=== PATIENT | female | born 1935 | race Caucasian/White ===

== ENCOUNTER 2017-09-15 14:45 | Inpatient (IN) | payer OTHER, MEDICARE ==
[2017-09-15] VITALS (30 sets, daily range): BP systolic 135–277; BP diastolic 54–114; PULSE 48–93; RESP 16–42; TEMP 97.5–98.2; O2SAT 92–100
[~2017-09-15] VITALS: Ht 160 cm; Wt 61.9 kg
--- NOTE | 2017-09-15 15:26 | PD ---
HPI Chief Complaint: Chest Pain Time Seen by Provider: 15:08 Travel History International Travel<30 days: No Contact w/Intl Traveler<30days: No Traveled to known affect area: No History of Present Illness HPI This 82-year-old female complaining of high blood pressure. She says she went to see her doctor yesterday and at that time her blood pressure was 244/110. She has a history of high blood pressure area she's been on clonidine 0.1 mg twice daily for many years. There is been no recent change in her medication. She does say that she's been under a lot of stress the last few weeks. Her bank account was intact and she has been under a lot of stress. She says she has been taking her medicine. She checks her blood pressure at home and has been over 200. She is having some chest pressure which comes and goes. She gets some pain in her jaw. She has no known history of heart disease. She says she been having a headache for the last 2 days. The headache she is having is bifrontal. She says she generally never gets headaches PFSH Social History Tobacco Use: No Allergies-Medications (Allergen,Severity, Reaction): Coded Allergies: No Known Allergies (Verified Allergy, Unknown, 09/15/17) Reported Meds & Prescriptions Reported Meds & Active Scripts Active Reported Lovastatin 40 Mg Tab 40 Mg PO HS Clonidine (Clonidine HCl) 0.1 Mg Tab 0.1 Mg PO BID Review of Systems General / Constitutional: No: Fever, Chills Eyes: No: Diploplia, Blurred Vision HENT: Positive: Headaches, No: Sore Throat, Rhinitis Cardiovascular: Positive: Chest Pain or Discomfort, No: Palpitations, Irregular Rhythm, Syncope Respiratory: No: Cough, Shortness of Breath Gastrointestinal: No: Nausea, Vomiting Genitourinary: No: Urgency, Frequency Musculoskeletal: No: Myalgias Skin: No Rash, No Itching Neurologic: No: Weakness Endocrine: No: Heat Intolerance, Cold Intolerance Hematologic/Lymphatic: No: Easy Bruising Physical Exam Narrative GENERAL: Well-developed female. Initial blood pressure is 250 systolic SKIN: Focused skin assessment warm/dry. HEAD: Atraumatic. Normocephalic. EYES: Pupils equal and round. No scleral icterus. No injection or drainage. ENT: No nasal bleeding or discharge. Mucous membranes pink and moist. NECK: Trachea midline. No JVD. CARDIOVASCULAR: Regular rate and rhythm. No murmur appreciated. RESPIRATORY: No accessory muscle use. Clear to auscultation. Breath sounds equal bilaterally. GASTROINTESTINAL: Abdomen soft, non-tender, nondistended. Hepatic and splenic margins not palpable. MUSCULOSKELETAL: No obvious deformities. No clubbing. No cyanosis. No edema. NEUROLOGICAL: Awake and alert. No obvious cranial nerve deficits. Motor grossly within normal limits. Normal speech. PSYCHIATRIC: Appropriate mood and affect; insight and judgment normal. Data Data Last Documented VS Vital Signs Date Time Temp Pulse Resp B/P (MAP) Pulse Ox O2 Delivery O2 Flow Rate FiO2 09/15/17 15:51 67 16 277/107 (163) 97 Room Air 09/15/17 15:40 98.2 Orders Orders Complete Blood Count With Diff (09/15/17 15:19) Comprehensive Metabolic Panel (09/15/17 15:19) Troponin I (09/15/17 15:19) B-Type Natriuretic Peptide (09/15/17 15:19) Prothrombin Time / Inr (Pt) (09/15/17 15:19) Act Partial Throm Time (Ptt) (09/15/17 15:19) Urinalysis - C+S If Indicated (09/15/17 15:19) Magnesium (Mg) (09/15/17 15:19) Chest, Single Ap (09/15/17 15:19) Nitroglycerin 2% Oint (Nitroglycerin 2% (09/15/17 15:30) Clonidine (Catapres) (09/15/17 15:30) Ct Brain W/O Iv Contrast(Rout) (09/15/17 15:35) Nicardipine Inj (Cardene Inj) (09/15/17 16:00) Labs Laboratory Tests Test 09/15/17 15:22 White Blood Count 6.7 TH/MM3 Red Blood Count 5.34 MIL/MM3 Hemoglobin 13.3 GM/DL Hematocrit 40.8 % Mean Corpuscular Volume 76.4 FL Mean Corpuscular Hemoglobin 25.0 PG Mean Corpuscular Hemoglobin Concent 32.7 % Red Cell Distribution Width 14.4 % Platelet Count 227 TH/MM3 Mean Platelet Volume 8.1 FL Neutrophils (%) (Auto) 72.4 % Lymphocytes (%) (Auto) 19.7 % Monocytes (%) (Auto) 5.7 % Eosinophils (%) (Auto) 1.8 % Basophils (%) (Auto) 0.4 % Neutrophils # (Auto) 4.9 TH/MM3 Lymphocytes # (Auto) 1.3 TH/MM3 Monocytes # (Auto) 0.4 TH/MM3 Eosinophils # (Auto) 0.1 TH/MM3 Basophils # (Auto) 0.0 TH/MM3 CBC Comment AUTO DIFF Differential Comment Blood Urea Nitrogen 27 MG/DL Creatinine 1.10 MG/DL Random Glucose 104 MG/DL Total Protein 7.3 GM/DL Albumin 3.4 GM/DL Calcium Level 8.9 MG/DL Magnesium Level 2.0 MG/DL Alkaline Phosphatase 69 U/L Aspartate Amino Transf (AST/SGOT) 14 U/L Alanine Aminotransferase (ALT/SGPT) 20 U/L Total Bilirubin 0.9 MG/DL Sodium Level 138 MEQ/L Potassium Level 3.7 MEQ/L Chloride Level 103 MEQ/L Carbon Dioxide Level 30.8 MEQ/L Anion Gap 4 MEQ/L Estimat Glomerular Filtration Rate 47 ML/MIN MDM Medical Decision Making Medical Screen Exam Complete: Yes Emergency Medical Condition: Yes Medical Record Reviewed: Yes Differential Diagnosis Differential includes hypertension, hypertensive emergency, acute coronary syndrome Narrative Course Patient's blood pressures apparently been elevated for several days. She is on quite a low dose of clonidine. She's been given additional clonidine and nitro paste was minimal response. She'll be started on Cardene drip Diagnosis Primary Impression: Hypertensive emergency Wilber Rolon MD Sep 15, 2017 15:26
[2017-09-15] MEDS ORDERED: LOVA40TA PO (15:27)
[2017-09-15] MEDS ORDERED: CLON0.1T PO (15:27)
[2017-09-15] MEDS ORDERED: cloNIDine HCL 0.1 MG TAB PO ONE (15:30)
[2017-09-15] MEDS ORDERED: NITROGLYCERIN 2% OINT 1 GM PACKET TOPICAL ONE (15:30)
[2017-09-15 15:38] LABS: AUTOMATED NEUTROPHIL # 4.9 TH/MM3 (1.8-7.7); BASOPHIL % 0.4 % (0.0-2.0); EOSINOPHIL # 0.1 TH/MM3 (0-0.4); EOSINOPHIL % 1.8 % (0.0-4.0); HEMATOCRIT 40.8 % (35.0-46.0); LYMPH % 19.7 % (9.0-44.0); LYMPHOCYTE # 1.3 TH/MM3 (1.0-4.8); MEAN CELL VOLUME 76.4 FL (80.0-100.0); MEAN CORPUSCULAR HGB CONC 32.7 % (32.0-36.0); MONO % 5.7 % (0.0-8.0); NEUT % 72.4 % (16.0-70.0); PLATELET COUNT 227 TH/MM3 (150-450); RED BLOOD COUNT 5.34 MIL/MM3 (4.00-5.30); RED CELL DISTRIBUTION WIDTH 14.4 % (11.6-17.2); WHITE BLOOD COUNT 6.7 TH/MM3 (4.0-11.0)
[2017-09-15 15:42] LABS: HEMO FLAGS AUTO DIFF
--- NOTE | 2017-09-15 15:44 | RADRPT ---
EXAM DATE/TIME: 09/15/2017 15:33 [facility] COMPARISON: No previous studies available for comparison. INDICATIONS : Chest discomfort, high blood pressure per patient MEDICAL HISTORY : Hypertension. SURGICAL HISTORY : None. ENCOUNTER: Initial ACUITY: 1 day PAIN SCORE: 0/10 LOCATION: Bilateral chest FINDINGS: Portable AP view of the chest demonstrates a normal-sized cardiac silhouette. No effusion, consolidat ion, or pneumothorax is visualized. The bones and soft tissues demonstrate no acute abnormality. EKG lines overlie the patient. CONCLUSION: No acute cardiopulmonary abnormality is identified. Felipe Walker MD on September 15, 2017 at 15:42 Board Certified Radiologist. This report was verified electronically.
[2017-09-15 15:51] LABS: CHLORIDE 103 MEQ/L (98-107); POTASSIUM 3.7 MEQ/L (3.5-5.1); SODIUM (NA) 138 MEQ/L (136-145)
[2017-09-15 15:55] LABS: ANION GAP 4 MEQ/L (5-15); BICARBONATE 30.8 MEQ/L (21.0-32.0); BLOOD UREA NITROGEN 27 MG/DL (7-18)
[2017-09-15 15:57] LABS: ALT (GPT) 20 U/L (10-53)
[2017-09-15 15:58] LABS: AST (GOT) 14 U/L (15-37); GLOMERULAR FILTRATION RATE 47 ML/MIN (>89)
[2017-09-15 15:59] LABS: TOTAL BILIRUBIN ADULT 0.9 MG/DL (0.2-1.0)
[2017-09-15 16:00] LABS: ALKALINE PHOSPHATASE 69 U/L (45-117)
[2017-09-15] MEDS ORDERED: niCARdipine INJ 25 MG in SODIUM CHLOR 0.9% 250 ML INJ 240 ML IV PRN ×2 (16:00→17:00)
[2017-09-15] MEDS ORDERED: niCARdipine INJ 25 MG in SODIUM CHLOR 0.9% 250 ML INJ 250 ML IV PRN (16:15)
--- NOTE | 2017-09-15 16:15 | RADRPT ---
EXAM DATE/TIME: 09/15/2017 15:42 [facility] COMPARISON: No previous studies available for comparison. INDICATIONS : Cephalgia. RADIATION DOSE: 59.16 CTDIvol (mGy) MEDICAL HISTORY : Hypertension. SURGICAL HISTORY : None. ENCOUNTER: Initial ACUITY: 1 day PAIN SCALE: 5/10 LOCATION: cranial TECHNIQUE: Multiple contiguous axial images were obtained of the head. Using automated exposure control and adj ustment of the mA and/or kV according to patient size, radiation dose was kept as low as reasonably a chievable to obtain optimal diagnostic quality images. DICOM format image data is available electro nically for review and comparison. FINDINGS: CEREBRUM: There is mild cerebral atrophy. Ventricles are normal. No evidence of midline shift, mass lesion, he morrhage or acute infarction. No extra-axial fluid collections are seen. POSTERIOR FOSSA: The cerebellum and brainstem demonstrate no acute finding. The 4th ventricle is midline. The cerebe llopontine angle is unremarkable. EXTRACRANIAL: Visualized sinuses are clear. SKULL: The calvaria is intact. No evidence of skull fracture. CONCLUSION: No acute intracranial abnormality is identified. Felipe Walker MD on September 15, 2017 at 16:03 Board Certified Radiologist. This report was verified electronically.
[2017-09-15] MEDS ORDERED: ACETAMINOPHEN 325 MG TAB PO ONE (16:30)
--- NOTE | 2017-09-15 16:33 | PD ---
Physical Exam Narrative Patient was seen by ED physician and signed out to me. Data Data Last Documented VS Vital Signs Date Time Temp Pulse Resp B/P (MAP) Pulse Ox O2 Delivery O2 Flow Rate FiO2 09/15/17 16:16 57 17 221/114 (149) 96 Room Air 09/15/17 15:40 98.2 Orders Orders Complete Blood Count With Diff (09/15/17 15:19) Comprehensive Metabolic Panel (09/15/17 15:19) Troponin I (09/15/17 15:19) B-Type Natriuretic Peptide (09/15/17 15:19) Prothrombin Time / Inr (Pt) (09/15/17 15:19) Act Partial Throm Time (Ptt) (09/15/17 15:19) Urinalysis - C+S If Indicated (09/15/17 15:19) Magnesium (Mg) (09/15/17 15:19) Chest, Single Ap (09/15/17 15:19) Nitroglycerin 2% Oint (Nitroglycerin 2% (09/15/17 15:30) Clonidine (Catapres) (09/15/17 15:30) Ct Brain W/O Iv Contrast(Rout) (09/15/17 15:35) Nicardipine Inj (Cardene Inj) (09/15/17 16:00) Electrocardiogram (09/15/17 14:52) Nicardipine Inj (Cardene Inj) (09/15/17 16:15) Acetaminophen (Tylenol) (09/15/17 16:30) Labs Laboratory Tests Test 09/15/17 15:22 White Blood Count 6.7 TH/MM3 Red Blood Count 5.34 MIL/MM3 Hemoglobin 13.3 GM/DL Hematocrit 40.8 % Mean Corpuscular Volume 76.4 FL Mean Corpuscular Hemoglobin 25.0 PG Mean Corpuscular Hemoglobin Concent 32.7 % Red Cell Distribution Width 14.4 % Platelet Count 227 TH/MM3 Mean Platelet Volume 8.1 FL Neutrophils (%) (Auto) 72.4 % Lymphocytes (%) (Auto) 19.7 % Monocytes (%) (Auto) 5.7 % Eosinophils (%) (Auto) 1.8 % Basophils (%) (Auto) 0.4 % Neutrophils # (Auto) 4.9 TH/MM3 Lymphocytes # (Auto) 1.3 TH/MM3 Monocytes # (Auto) 0.4 TH/MM3 Eosinophils # (Auto) 0.1 TH/MM3 Basophils # (Auto) 0.0 TH/MM3 CBC Comment AUTO DIFF Differential Comment Blood Urea Nitrogen 27 MG/DL Creatinine 1.10 MG/DL Random Glucose 104 MG/DL Total Protein 7.3 GM/DL Albumin 3.4 GM/DL Calcium Level 8.9 MG/DL Magnesium Level 2.0 MG/DL Alkaline Phosphatase 69 U/L Aspartate Amino Transf (AST/SGOT) 14 U/L Alanine Aminotransferase (ALT/SGPT) 20 U/L Total Bilirubin 0.9 MG/DL Sodium Level 138 MEQ/L Potassium Level 3.7 MEQ/L Chloride Level 103 MEQ/L Carbon Dioxide Level 30.8 MEQ/L Anion Gap 4 MEQ/L Estimat Glomerular Filtration Rate 47 ML/MIN Troponin I 0.02 NG/ML MDM Supervised Visit with DAVID: No Interpretation(s) 1632 PM. EKG shows sinus rhythm with right bundle branch block. Nonspecific ST -T wave change. Differential Diagnosis Differential diagnosis including hypertensive emergency, cephalgia, angina, SC, PE, pneumothorax. Narrative Course Patient is with elevated blood pressure, headache, chest pain. Patient was seen by ED physician and signed out to me. Patient started on Cardene drip to control blood pressure. Aspirin 325 g by mouth given. Diagnosis Primary Impression: Hypertensive emergency Additional Impressions: Chest pain Qualified Codes: R07.9 - Chest pain, unspecified Cephalgia Qualified Codes: R51 - Headache César Abraham MD Sep 15, 2017 16:33
--- NOTE | 2017-09-15 16:37 | EKG ---
Date Performed: 09/15/2017 Time Performed: 14:52:55 PTAGE: 82 years EKG: Sinus rhythm POSSIBLE LEFT ATRIAL ENLARGEMENT RIGHT BUNDLE BRANCH BLOCK LEFT ANTERIOR FASCICULAR BLOCK LEFT VENTR ICULAR HYPERTROPHY AND ST-T CHANGE POSSIBLE SEPTAL MYOCARDIAL INFARCTION ABNORMAL ECG Compared to lila or electrocardiogram, rate has increased . PREVIOUS TRACING : 07/16/2002 07.38 DOCTOR: Ramses Bee Interpretating Date/Time 09/15/2017 16:36:21
[2017-09-15 16:38] LABS: SCAN/DIFF AUTO DIFF CONFIRMED
[2017-09-15] MEDS ORDERED: ASPIRIN 325 MG TAB PO ONE (16:45)
[2017-09-15 17:25] LABS: APTT (PATIENT) 27.7 SEC (24.3-30.1); PROTHROMBIN TIME - PATIENT 10.7 SEC (9.8-11.6)
[2017-09-15] MEDS: NIFEdipine 10 MG CAP PO SCH (17:46)
[2017-09-15 17:50] LABS: GLUCOSE,URINE NEG (NEG); KETONE, URINE NEG (NEG); NITRITE,URINE NEG (NEG); PH, URINE 6.5 (5.0-8.5)
[2017-09-15 17:51] LABS: BLOOD, URINE TRACE (NEG)
--- NOTE | 2017-09-15 18:21 | HHI.HP ---
[facility] Primary Care Physician Boy Pacheco MD Admission Diagnosis hypertensive urgency. Chest pain. Cephalgia. Diagnoses: Chief Complaint: high blood pressure Travel History International Travel<30 Days: No Contact w/Intl Traveler <30 Da: No Traveled to Known Affected Are: No History of Present Illness 82 y/o WF being admitted for hypertensive emergency. Pt was in her USOH until yesterday when he went to her PCPs office was noted to have an elevated blood pressures near the 200s systolic. The patient was offered to get an EKG but declined and said she was going to get it later. She then rechecked her blood pressure at home today and it was 240s systolic and then decided to proceed to the ER. Patient reports having very mild but intermittent chest pains that she says are chronic. Did report having some lightheadedness earlier this morning. No nausea or vomiting, no fevers or chills. Review of Systems Except as stated in HPI: all other systems reviewed are Neg Past Family Social History Past Medical History HTN HYL Past Surgical History tonsillectomy Allergies: Coded Allergies: No Known Allergies (Verified Allergy, Unknown, 09/15/17) Family History HTN Social History ex smoker by 20+ yrs light ETOH use Physical Exam Vital Signs Vital Signs Date Time Temp Pulse Resp B/P (MAP) Pulse Ox O2 Delivery O2 Flow Rate FiO2 09/15/17 17:50 76 176/74 (108) 09/15/17 17:40 74 178/86 (116) 09/15/17 17:26 86 184/86 (118) 09/15/17 17:11 83 17 214/94 (134) 95 Room Air 09/15/17 16:16 57 17 221/114 (149) 96 Room Air 09/15/17 16:13 63 228/112 09/15/17 15:51 67 16 277/107 (163) 97 Room Air 09/15/17 15:40 98.2 60 18 263/106 (158) 97 Room Air 09/15/17 15:00 98.1 79 16 244/110 (154) 96 Physical Exam VS: afebrile GENERAL: well nourished elderly female SKIN: Warm and dry. EYES: Pupils equal and round. No scleral icterus. No injection or drainage. ENT: No nasal bleeding or discharge. Mucous membranes pink and moist. CARDIOVASCULAR: Regular rate and rhythm. no murmurs RESPIRATORY: No accessory muscle use. Clear to auscultation. Breath sounds equal bilaterally. GASTROINTESTINAL: Abdomen soft, non-tender, nondistended. Hepatic and splenic margins not palpable. Extremities: No clubbing, cyanosis, or edema. No obvious deformities. MUSCULOSKELETAL: Extremities without clubbing, cyanosis, or edema. No obvious deformities. grossly intact ROM with 5/5 strength in upper and lower extremities proximally NEUROLOGICAL: Awake and alert. No obvious cranial nerve deficits. No facial droop nor slurred speech noted. PSYCHIATRIC: Appropriate mood and affect; insight and judgment normal. Laboratory Laboratory Tests Test 09/15/17 15:22 09/15/17 17:39 White Blood Count 6.7 Red Blood Count 5.34 Hemoglobin 13.3 Hematocrit 40.8 Mean Corpuscular Volume 76.4 Mean Corpuscular Hemoglobin 25.0 Mean Corpuscular Hemoglobin Concent 32.7 Red Cell Distribution Width 14.4 Platelet Count 227 Mean Platelet Volume 8.1 Neutrophils (%) (Auto) 72.4 Lymphocytes (%) (Auto) 19.7 Monocytes (%) (Auto) 5.7 Eosinophils (%) (Auto) 1.8 Basophils (%) (Auto) 0.4 Neutrophils # (Auto) 4.9 Lymphocytes # (Auto) 1.3 Monocytes # (Auto) 0.4 Eosinophils # (Auto) 0.1 Basophils # (Auto) 0.0 CBC Comment AUTO DIFF Differential Comment AUTO DIFF CONFIRMED Prothrombin Time 10.7 Prothromb Time International Ratio 1.0 Activated Partial Thromboplast Time 27.7 Blood Urea Nitrogen 27 Creatinine 1.10 Random Glucose 104 Total Protein 7.3 Albumin 3.4 Calcium Level 8.9 Magnesium Level 2.0 Alkaline Phosphatase 69 Aspartate Amino Transf (AST/SGOT) 14 Alanine Aminotransferase (ALT/SGPT) 20 Total Bilirubin 0.9 Sodium Level 138 Potassium Level 3.7 Chloride Level 103 Carbon Dioxide Level 30.8 Anion Gap 4 Estimat Glomerular Filtration Rate 47 Troponin I 0.02 Urine pH 6.5 Urine Protein 30 Urine Glucose (UA) NEG Urine Ketones NEG Urine Occult Blood TRACE Urine Nitrite NEG Urine Bilirubin NEG Urine Leukocyte Esterase NEG Result Diagram: 09/15/17 1522 09/15/17 1522 Imaging Last Impressions Head CT 09/15/17 1535 Signed Impressions: Service Date/Time: Friday, September 15, 2017 15:42 - CONCLUSION: No acute intracranial abnormality is identified. Felipe Walker MD Chest X-Ray 09/15/17 1519 Signed Impressions: Service Date/Time: Friday, September 15, 2017 15:33 - CONCLUSION: No acute cardiopulmonary abnormality is identified. MD Carlton Pendleton VTE Risk Assessment [place] VTE Risk Assessment: Mod/High Risk (score >= 2) Caprini Risk Assessment Model Point Value = 1 Point Value = 2 Point Value = 3 Point Value = 5 Age 41-60 Minor surgery BMI > 25 kg/m2 Swollen legs Varicose veins or History of unexplained or recurrent spontaneous Oral contraceptives or hormone replacement Sepsis (< 1 month) Serious lung disease, including pneumonia (< 1 month) Abnormal pulmonary function Acute myocardial infarction Congestive heart failure (< 1 month) History of inflammatory bowel disease Medical patient at bed rest Age 61-74 Arthroscopic surgery Major open surgery (> 45 min) Laparoscopic surgery (> 45 min) Malignancy Confined to bed (> 72 hours) Immobilizing plaster cast Central venous access Age >= 75 History of VTE Family history of VTE Factor V Leiden Prothrombin [id number] Lupus anticoagulant Anticardiolipin antibodies Elevated serum homocysteine Heparin-induced thrombocytopenia Other congenital or acquired thrombophilia Stroke (< 1 month) Elective arthroplasty Hip, pelvis, or leg fracture Acute spinal cord injury (< 1 month) Prophylaxis Regimen Total Risk Factor Score Risk Level Prophylaxis Regimen 0-1 Low Early ambulation 2 Moderate Order ONE of the following: *Sequential Compression Device (SCD) *Heparin 5000 units SQ BID 3-4 Higher Order ONE of the following medications: *Heparin 5000 units SQ TID *Enoxaparin/Lovenox 40 mg SQ daily (WT < 150 kg, CrCl > 30 mL/min) *Enoxaparin/Lovenox 30 mg SQ daily (WT < 150 kg, CrCl > 10-29 mL/min) *Enoxaparin/Lovenox 30 mg SQ BID (WT < 150 kg, CrCl > 30 mL/min) AND/OR *Sequential Compression Device (SCD) 5 or more Highest Order ONE of the following medications: *Heparin 5000 units SQ TID (Preferred with Epidurals) *Enoxaparin/Lovenox 40 mg SQ daily (WT < 150 kg, CrCl > 30 mL/min) *Enoxaparin/Lovenox 30 mg SQ daily (WT < 150 kg, CrCl > 10-29 mL/min) *Enoxaparin/Lovenox 30 mg SQ BID (WT < 150 kg, CrCl > 30 mL/min) AND *Sequential Compression Device (SCD) Assessment and Plan Assessment and Plan HTN emergency - continue nicardipine drip in ICU w/ gradual titration to avoid risk of CVA - starting oral nifedipine and Lopressor, monitor BPs, patient reports having a cough side effect likely to an JC inhibitor in the past - telemetry - CT head neg Chest pain - I independently reviewed EKG shows new T-wave inversions in V1 and V2, but given that her EKG prior to today was done in 2001 and that clinically her symptoms do not match up with ACS, I suspect that these changes likely became subacute to chronic over the years, troponin negative - Very mild and intermittent, not exertion-based, I do not suspect that this is due to demand ischemia, will not workup any further unless it worsens DVT proph. Lovenox Physician Certification 2 Midnight Certification Type: Admission for Inpatient Services Order for Inpatient Services The services are ordered in accordance with Medicare regulations or non- Medicare payer requirements, as applicable. In the case of services not specified as inpatient-only, they are appropriately provided as inpatient services in accordance with the 2-midnight benchmark. Estimated LOS (days): 2 2 days is the estimated time the patient will need to remain in the hospital, assuming treatment plan goals are met and no additional complications. Post-Hospital Plan: Home Byron Gutierrez MD Sep 15, 2017 18:21
[2017-09-15 18:26] LABS: URINE COLOR YELLOW (YELLW/STRAW)
[2017-09-15 18:27] LABS: RBC, URINE 0-2 /hpf (0-3); SQUAMOUS EPITHELIAL CELL URINE 0-5 /hpf (0-5); WBC, URINE 0-2 /hpf (0-5)
[2017-09-15 18:28] LABS: COMMENT (UR) CULT NOT INDICATED; CULTURE IF INDICATED CULT NOT INDICATED
[2017-09-15] MEDS: METOPROLOL TARTRATE 25 MG TAB PO SCH (20:15)
[2017-09-15] MEDS ORDERED: PRAVASTATIN SOD 40 MG TAB PO SCH (21:00)
[2017-09-16] VITALS (38 sets, daily range): BP systolic 140–196; BP diastolic 60–88; PULSE 49–78; RESP 18–43; TEMP 97.6–98.5; O2SAT 94–96
[2017-09-16] MEDS: niCARdipine INJ 25 MG in SODIUM CHLOR 0.9% 250 ML INJ 240 ML IV PRN ×2 (01:11→06:25)
[2017-09-16] MEDS ORDERED: CHLORHEXIDINE GLUCONATE 2 % 1 PACK (2 CLOTHS)(extra cloths) TOPICAL PRN (01:15)
[2017-09-16] MEDS ORDERED: CHLORHEXIDINE GLUCONATE 2 % 1 PACK (2 CLOTHS)(taper/protocol) TOPICAL SCH (04:00)
[2017-09-16] MEDS: NIFEdipine 10 MG CAP PO SCH (06:24)
[2017-09-16] MEDS: METOPROLOL TARTRATE 25 MG TAB PO SCH (09:00)
[2017-09-16] MEDS ORDERED: cloNIDine HCL 0.1 MG TAB PO ONE (10:45)
[2017-09-16] MEDS ORDERED: PILL SPLITTER OTHER PRN (10:45)
[2017-09-16] MEDS ORDERED: NIFEdipine 10 MG CAP PO ONE (10:45)
[2017-09-16] MEDS ORDERED: NIFEdipine 20 MG CAP PO SCH (14:00)
[2017-09-16] MEDS ORDERED: LOSA25TA PO (16:25)
[2017-09-16] MEDS ORDERED: METO25TA3 PO (16:25)
[2017-09-16] MEDS ORDERED: NIFE60TA58 PO (16:25)
--- NOTE | 2017-09-16 16:26 | HHI.DCPOC ---
Discharge Care Plan Diagnosis: (1) Hypertensive emergency Additional Problems Have your primary care doctor check your kidney function attention next visit. Goals to Promote Your Health * To prevent worsening of your condition and complications * To maintain your health at the optimal level Directions to Meet Your Goals Take your medications as prescribed Follow your dietary instruction Follow activity as directed Keep your appointments as scheduled Take your immunizations and boosters as scheduled If your symptoms worsen call your PCP, if no PCP go to Urgent Care Center or Emergency Room Smoking is Dangerous to Your Health. Avoid second hand smoke Call the 24-hour hour crisis hotline for domestic abuse at Byron Gutierrez MD Sep 16, 2017 16:26
[2017-09-16] MEDS ORDERED: ASPI81TA23 PO (16:28)
--- NOTE | 2017-09-16 16:38 | HHI.PR ---
Subjective Remarks RN reports no symptomatic deteriorations since last night. Pt feels fine. no CP today. no lightheadedness. Objective Vital Signs Date Time Temp Pulse Resp B/P (MAP) Pulse Ox O2 Delivery O2 Flow Rate FiO2 09/16/17 13:50 60 29 163/64 (97) 94 09/16/17 13:00 60 26 142/65 (90) 09/16/17 12:00 60 09/16/17 12:00 97.6 60 36 149/63 (91) 94 09/16/17 11:00 64 43 171/72 (105) 09/16/17 10:27 66 28 171/83 (112) 09/16/17 10:14 60 171/83 09/16/17 10:00 66 27 180/87 (118) 09/16/17 10:00 66 09/16/17 09:00 74 38 149/72 (97) 09/16/17 08:57 72 27 168/75 (106) 09/16/17 08:00 66 09/16/17 07:57 64 37 150/69 (96) 09/16/17 07:00 98.5 64 22 140/62 (88) 09/16/17 06:34 64 20 178/85 (116) 09/16/17 06:27 66 22 175/77 (109) 09/16/17 06:25 66 170/77 09/16/17 06:00 69 09/16/17 05:57 66 22 164/75 (104) 09/16/17 05:42 76 22 170/74 (106) 09/16/17 05:30 78 22 179/88 (118) 09/16/17 05:13 63 20 168/69 (102) 09/16/17 05:01 62 20 196/79 (118) 09/16/17 05:00 66 22 188/79 (115) 09/16/17 04:30 54 21 158/66 (96) 09/16/17 04:00 54 22 143/60 (87) 95 09/16/17 04:00 58 09/16/17 03:30 54 22 145/62 (89) 09/16/17 03:01 56 20 156/63 (94) 09/16/17 02:46 56 22 148/65 (92) 09/16/17 02:31 58 22 151/64 (93) 09/16/17 02:16 56 24 142/60 (87) 09/16/17 02:01 56 22 142/62 (88) 95 09/16/17 02:00 61 09/16/17 01:46 56 22 144/65 (91) 09/16/17 01:31 56 26 146/65 (92) 09/16/17 01:31 56 26 146/65 (92) 09/16/17 01:30 56 34 09/16/17 01:16 50 18 171/75 (107) 09/16/17 01:11 58 146/55 09/16/17 01:01 56 20 179/69 (105) 09/16/17 00:46 52 22 156/69 (98) 09/16/17 00:30 54 32 165/69 (101) 09/16/17 00:15 52 18 164/71 (102) 09/16/17 00:00 54 26 165/68 (100) 09/16/17 00:00 49 09/16/17 00:00 98.0 54 26 165/68 (100) 96 09/15/17 23:45 54 20 162/66 (98) 09/15/17 23:45 54 20 162/66 (98) 09/15/17 23:30 48 39 170/69 (102) 09/15/17 23:30 48 39 170/69 (102) 09/15/17 23:15 52 24 169/70 (103) 09/15/17 23:15 52 24 169/70 (103) 09/15/17 23:00 50 24 151/61 (91) 09/15/17 23:00 50 24 151/61 (91) 09/15/17 22:45 50 19 144/64 (90) 09/15/17 22:30 52 18 142/69 (93) 09/15/17 22:15 54 20 148/54 (85) 09/15/17 22:00 52 09/15/17 22:00 55 24 145/65 (91) 09/15/17 21:45 50 27 135/58 (83) 09/15/17 21:30 58 24 152/62 (92) 09/15/17 21:15 56 19 144/64 (90) 09/15/17 21:00 58 19 135/58 (83) 09/15/17 20:45 56 24 140/58 (85) 09/15/17 20:19 66 24 156/65 (95) 96 09/15/17 20:00 59 09/15/17 19:41 68 34 166/63 (97) 09/15/17 19:30 64 149/61 09/15/17 19:30 98.1 67 30 135/58 (83) 95 09/15/17 19:21 66 42 168/76 (106) 92 09/15/17 18:55 77 17 171/68 (102) 99 Room Air 09/15/17 18:55 09/15/17 18:35 97.5 80 17 149/64 (92) 100 Room Air 09/15/17 18:20 87 162/69 (100) 09/15/17 18:05 93 177/74 (108) 09/15/17 17:50 76 176/74 (108) 09/15/17 17:40 74 178/86 (116) 09/15/17 17:26 86 184/86 (118) 09/15/17 17:11 83 17 214/94 (134) 95 Room Air I/O 09/15/17 09/15/17 09/15/17 09/16/17 09/16/17 09/16/17 07:00 15:00 23:00 07:00 15:00 23:00 Intake Total 1220 ml 235 ml Output Total 800 ml Balance -800 ml 1220 ml 235 ml Intake Oral 720 ml IV Total 500 ml 235 ml Output Urine Total 800 ml # Voids 1 5 # Bowel Movements 0 Result Diagram: 09/15/17 1522 09/15/17 1522 Objective Remarks unlabored breathing Hrt sounds: RRR and no murmurs A/P Assessment and Plan HTN emergency - discontinued off drip today in AM, now on orals tolerating nifedipine, lopressor, and onex1 dose of clonidine Complete symptom resolution. Resolution of HTN emergency. Pt ambulated well in hallway and around nursing station w/o CP. No angina suspected. Extensively counseled patient on f/u with PCP regarding close BP monitoring. Explained that if she found herself of have elevated BPs in the 200s systolic with any symptoms to return to ER. Pt verbalized understanding. Spent more than 30 min on discharge. Byron Gutierrez MD Sep 16, 2017 16:38
== END 2017-09-16 17:50 | disposition home or self-care (01) | DRG 305 ==
LOC: PHED 14:45 → PHEDA 16:50 → PHICU 19:12
PROVIDERS: ADMIT Hospitalist; ATTEND Hospitalist
DX: I16.1 Hypertensive emergency (principal); I10 Essential (primary) hypertension; R51 Headache; R07.89 Other chest pain; Z87.891 Personal history of nicotine dependence
CPT/HCPCS: 70450; 71010; 80053; 81001; 82948; 83735; 83880; 84484; 85025; 85610; 85730; 87641; 93005; 96365; J7050

== ENCOUNTER 2018-09-01 11:26 | Observation (INO) ==
[2018-09-01 12:58] LABS: Baso % (Auto) 0.7 % (0.0-2.0); Eos # (Auto) 0.1 th/mm3 (0.0-0.4); Hematocrit 38.6 % (35.0-46.0); Hemoglobin 12.6 gm/dL (11.6-15.3); Lymph # (Auto) 1.1 th/mm3 (1.0-4.8); Lymph % (Auto) 15.7 % (9.0-44.0); Mean Corpuscular HGB Conc 32.6 % (32.0-36.0); Mean Corpuscular Hemoglobin 25.7 pg (27.0-34.0); Mean Platelet Volume 8.3 fL (7.0-11.0); Mono # (Auto) 0.5 th/mm3 (0.0-0.9); Mono % (Auto) 7.7 % (0.0-8.0); Neut # (Auto) 5.2 th/mm3 (1.8-7.7); Neut % (Auto) 73.9 % (16.0-70.0); Platelet Count 255 th/mm3 (150-450); Red Blood Count 4.88 mil/mm3 (4.00-5.30)
[2018-09-01] MEDS ORDERED: Metoprolol Tartrate 25 MG Tablet PO ONE (13:00)
[2018-09-01] MEDS ORDERED: Chlorhexidine Gluconate 2% 1 Pack (2 Cloths) TOPICAL ONE (13:00)
[2018-09-01] MEDS ORDERED: Sodium Chlor 0.9% Inj 500 ML IV.SIG SCH (13:00)
[2018-09-01] MEDS ORDERED: Chlorhexidine 4% Topical 120 APPLIC/120 ML Bottle TOPICAL SCH (13:00)
[2018-09-01 13:10] LABS: Calcium 8.7 mg/dL (8.5-10.1); Carbon Dioxide 27.6 meq/L (21.0-32.0); Potassium 4.2 meq/L (3.5-5.1)
[2018-09-01] MEDS ORDERED: ceFAZolin 2 GM Premix Inj 2 GM/50 ML PIGGYBACK IV.SIG ONE (13:30)
[2018-09-01] MEDS ORDERED: Famotidine PF Inj 20 MG/2 ML Vial ONE (13:57)
[2018-09-01] MEDS ORDERED: fentaNYL Citrate Inj 100 MCG/2 ML Ampul ONE ×2 (13:57→15:57)
[2018-09-01] MEDS ORDERED: Lidocaine PF 1% Inj 5 ML Syringe OTHER ONE (14:16)
[2018-09-01] MEDS ORDERED: BUPIVACAINE ONE (14:37)
[2018-09-01] MEDS ORDERED: EPINEPHRINE ONE (14:37)
[2018-09-01] MEDS ORDERED: Morphine Sulfate Inj 8 MG/ML Vial IV.PUSH PRN (15:38)
--- NOTE | 2018-09-01 15:38 | P.OP ---
Date of procedure: 09/01/18 Procedure: Open reduction internal fixation closed left distal radius extra-articular fracture Implants: Synthes Anesthesia: GETA Surgeon: Kandice Goodrich MD Estimated blood loss (mL): 15 Pathology: none sent Operation and Findings: Indications for procedure: Patient is an 83-year-old female who had a mechanical trip and fall and was found to have a closed displaced left extra- articular distal radius fracture. Patient underwent closed reduction and splinting in the emergency department and followed up in my office. Patient was found to have persistent displaced closed left distal radius fracture. Options of management were discussed with the patient. Risks, benefits, alternatives were discussed. At this time patient wished to proceed with the above-mentioned procedure. Description of procedure: Patient was brought back to the operating room and placed supine on operating room table with all bony promises well-padded. General anesthesia then ensued. A tourniquet was placed on the patient's left upper arm and patient was prepped and draped in standard sterile fashion. Preoperative antibiotics were given within 1 hour of incision. A timeout was performed to down by the correct patient, side, site and procedure to be performed. The arm was exsanguinated and the tourniquet inflated to 250 mmHg. A volar incision was made about the distal radius over the FCR. Sharp dissection through the skin and subcutaneous tissue. The FCR tendon sheath was incised and the FCR tendon mobilized ulnarly. The floor of the FCR tendon sheath was then incised along with pronator quadratus which was elevated off of the distal aspect of the radius. The fracture site was immediately encountered. The fracture site was cleaned of tissue and the distal radius reduced under traction and rotation and verified on AP and lateral radiographs. A distal radius locking plate was then placed and verified to be in appropriate position on AP and lateral radiographs. A nonlocking cortical screw was placed in the proximal radius. Again the plate was verified to be in appropriate position. The fracture was held reduced and distal locking screws were then placed. Again, the fracture was found to be in appropriate alignment and hardware in appropriate position. 2 more nonlocking cortical screws were placed in the proximal radius. All screws were final tightened. Final radiographs were obtained which demonstrated the fracture was well reduced and hardware was in appropriate position. The wound was thoroughly irrigated with normal saline laden with gentamicin. The subcutaneous tissue was closed with Vicryl sutures and the skin closed with nylon. Local anesthetic of quarter percent Marcaine with epinephrine was utilized. The tourniquet was deflated and sterile dressings applied along with a short arm splint. Patient was awoke from general anesthesia without complication. Disposition: Nonweightbearing left upper extremity in splint. Patient will be discharged from the postoperative area when she meets criteria. Instructions to follow-up as scheduled in my office in approximately 2 weeks.
[2018-09-01] MEDS ORDERED: hydrALAZINE HCl Inj 20 MG/ML Vial ONE (15:47)
[2018-09-01] MEDS ORDERED: *Meperidine Inj 25 MG/ML Vial PERIprocedural Use ONLY ONE (15:47)
--- NOTE | 2018-09-01 15:55 | XR ---
EXAM DATE: 09/01/2018 3:51 PM EDT AGE/SEX: 83 years / Female INDICATIONS: ORIF of the left wrist done in the operating room. CLINICAL DATA: This is the patient's initial encounter. Patient reports that signs and symptoms have been present for 1 day and indicates a pain score of Nonresponsive. MEDICAL/SURGICAL HISTORY: Hypertension. None. COMPARISON: [facility], WRIST LTD LEFT AP&LAT 2V, 08/24/2018. . FINDINGS: Intraoperative images show sideplate and osseous screws securing the distal radial metadiaphyseal fra cture. Fracture fragments are in adequate anatomic alignment with some minimal radial displacement of the distal fragment. CONCLUSION: Open reduction and internal fixation of the distal radial metadiaphyseal fracture as above. Electronically signed by: Sonu Hyatt MD 09/01/2018 3:53 PM EDT
[2018-09-01] MEDS ORDERED: HYDROmorphone PF Inj 2 MG/ML Vial ONE ×2 (16:05→16:28)
[2018-09-01] MEDS ORDERED: *Ondansetron Inj 4 MG/2 ML Vial PERIprocedural Use ONLY ONE (16:15)
[2018-09-01] MEDS ORDERED: *Promethazine Inj 25 MG/ML Vial PERIprocedural use ONLY ONE (16:39)
[2018-09-01] MEDS ORDERED: Ropivacaine 0.5% PF Inj 20 ML Vial ONE (17:10)
[2018-09-02 01:56] VITALS: RESP 20
--- NOTE | 2018-09-02 06:32 | P.PNOP ---
Subjective Interval history: Patient resting comfortably. States she has no pain this morning. Physical Exam Vital signs: Vital Signs 09/01/18 12:26 09/01/18 15:43 09/01/18 15:45 Temperature 97.7 F 97.5 F L Pulse Rate 54 L 61 61 Respiratory Rate 16 22 20 Blood Pressure 220/83 H 198/93 H 240/104 H Pulse Oximetry 96 100 100 09/01/18 15:51 09/01/18 16:00 09/01/18 16:15 Temperature Pulse Rate 64 73 76 Respiratory Rate 14 15 15 Blood Pressure 218/95 H 203/86 H 209/86 H Pulse Oximetry 100 100 100 09/01/18 16:30 09/01/18 16:45 09/01/18 17:00 Temperature Pulse Rate 76 77 75 Respiratory Rate 23 19 19 Blood Pressure 189/81 H 184/81 H 181/78 H Pulse Oximetry 100 99 100 09/01/18 17:15 09/01/18 17:30 09/01/18 17:45 Temperature Pulse Rate 76 69 67 Respiratory Rate 14 14 14 Blood Pressure 189/81 H 176/75 H 150/70 H Pulse Oximetry 98 100 99 09/01/18 18:00 09/01/18 20:00 09/02/18 00:00 Temperature 98.1 F 96.0 F L 97.7 F Pulse Rate 71 81 84 Respiratory Rate 14 22 20 Blood Pressure 143/70 H 176/83 H 196/83 H Pulse Oximetry 94 L 90 L 93 L 09/02/18 02:39 09/02/18 04:00 09/02/18 06:16 Temperature 98.2 F Pulse Rate 78 75 71 Respiratory Rate 20 Blood Pressure 176/78 H 184/81 H 152/68 H Pulse Oximetry 95 Intake & Output 09/01/18 09/01/18 09/02/18 06:59 18:59 06:59 Intake Total 1080 / 1080 480 / 480 Output Total Balance 1065 / 1065 480 / 480 Weight 61.7 kg 62 kg Intake: IV 50 / 50 Ancef 2 GM Premix Inj 2 gm In 50 / 50 50 ml @ 100 mls/hr IV.SIG ONCE ONE Rx#:[id number] Oral 480 / 480 Anesthesia Amount 1000 / 1000 Output: Urine 0 / 0 Estimated Blood Loss Other: # Voids 2 Date of Last Bowel Movement 09/01/18 Weight On Admission 61.7 kg Narrative: Awake, alert, no acute distress Left upper extremity: Splint in place without significant drainage. Patient wiggles fingers without difficulty. Sensation intact. Brisk cap refill. Negative Homans Results - Labs CBC & Chem 7: 09/01/18 12:20 09/01/18 12:20 Laboratory Results - last 24 hr 09/01/18 09/01/18 12:20 12:20 WBC 7.0 RBC 4.88 Hgb 12.6 Hct 38.6 MCV 79.0 L MCH 25.7 L MCHC 32.6 RDW 15.0 Plt Count 255 MPV 8.3 Neut % (Auto) 73.9 H Lymph % (Auto) 15.7 Starr % (Auto) 7.7 Eos % (Auto) 2.0 Baso % (Auto) 0.7 Neut # (Auto) 5.2 Lymph # (Auto) 1.1 Starr # (Auto) 0.5 Eos # (Auto) 0.1 Baso # (Auto) 0.0 WBC Differential . Differential Comment Auto diff final Sodium 142 Potassium 4.2 Chloride 105 Carbon Dioxide 27.6 Anion Gap 9 BUN 22 H Creatinine 1.13 H Estimated GFR 46 L Random Glucose 97 Calcium 8.7 - Imaging Impressions Wrist X-Ray 09/01/18 00:00 CONCLUSION: Open reduction and internal fixation of the distal radial metadiaphyseal fracture as above. Assessment and Plan - Assessment and Plan 83-year-old female, POD#1 s/p ORIF L 1. NWB LUE in splint 2. Mobilization as tolerated 3. Discharge home this morning
[2018-09-02 08:49] VITALS: BP 176/74; PULSE 69; TEMP 98.3; O2SAT 94
[2018-09-02] MEDS ORDERED: Atenolol 25 MG Tablet PO SCH (09:00)
--- NOTE | 2018-09-02 14:21 | P.DS ---
Date of admission: 09/01/18 18:57 Primary care physician: UNKNOWN DS: Medications - Discharge Medications Prescriptions: hydrocodone-acetaminophen 1 tab PO Q4-6H PRN #28 tab PRN Reason: Pain DS: Summary - Time Spent with Patient Total time spent providing and/or coordinating discharge services: - Quality: VTE Deep Vein Thrombosis/Pulmonary Embolism Present on Admission: No Exam Vital signs: Vital Signs 09/01/18 15:43 09/01/18 15:45 09/01/18 15:51 Temperature 97.5 F L Pulse Rate 61 61 64 Respiratory Rate 22 20 14 Blood Pressure 198/93 H 240/104 H 218/95 H Pulse Oximetry 100 100 100 09/01/18 16:00 09/01/18 16:15 09/01/18 16:30 Temperature Pulse Rate 73 76 76 Respiratory Rate 15 15 23 Blood Pressure 203/86 H 209/86 H 189/81 H Pulse Oximetry 100 100 100 09/01/18 16:45 09/01/18 17:00 09/01/18 17:15 Temperature Pulse Rate 77 75 76 Respiratory Rate 19 19 14 Blood Pressure 184/81 H 181/78 H 189/81 H Pulse Oximetry 99 100 98 09/01/18 17:30 09/01/18 17:45 09/01/18 18:00 Temperature 98.1 F Pulse Rate 69 67 71 Respiratory Rate 14 14 14 Blood Pressure 176/75 H 150/70 H 143/70 H Pulse Oximetry 100 99 94 L 09/01/18 20:00 09/02/18 00:00 09/02/18 02:39 Temperature 96.0 F L 97.7 F Pulse Rate 81 84 78 Respiratory Rate 22 20 Blood Pressure 176/83 H 196/83 H 176/78 H Pulse Oximetry 90 L 93 L 09/02/18 04:00 09/02/18 06:16 09/02/18 08:00 Temperature 98.2 F 98.3 F Pulse Rate 75 71 69 Respiratory Rate 20 20 Blood Pressure 184/81 H 152/68 H 176/74 H Pulse Oximetry 95 94 L Intake & Output 09/01/18 09/02/18 09/02/18 18:59 06:59 18:59 Intake Total 1080 / 1080 480 / 480 Output Total 15 / 15 Balance 1065 / 1065 480 / 480 Weight 61.7 kg 62 kg Intake: IV 50 / 50 Ancef 2 GM Premix Inj 2 gm In 50 / 50 50 ml @ 100 mls/hr IV.SIG ONCE ONE Rx#:[id number] Oral 30 30 480 / 480 Anesthesia Amount 1000 / 1000 Output: Urine 0 / 0 Estimated Blood Loss Other: # Voids 2 Date of Last Bowel Movement 09/01/18 09/01/18 Weight On Admission 61.7 kg Results - Impressions ITS Impressions Wrist X-Ray 09/01/18 00:00 CONCLUSION: Open reduction and internal fixation of the distal radial metadiaphyseal fracture as above. Discharge Plan - Discharge Disposition Patient Disposition: Discharge Home - Discharge Order Discharge Orders: Discharge Order (Routine); Ordered 09/01/18 Ordered By: Kandice Goodrich - Physicians Team Primary Care Provider: UNKNOWN, Attending Provider: Kandice Goodrich Other Providers: Maryanne Mccormick DO - Rxs /Orders / Referrals /Forms Prescriptions: New hydrocodone-acetaminophen 5-325 mg Tablet 1 tab PO Q4-6H PRN (Reason: Pain) Qty: 28 RF: 0 Continue atenolol 25 mg Tablet 25 mg PO DAILY clonidine HCl 0.1 mg Tablet 0.1 mg PO TID lovastatin 40 mg Tablet 40 mg PO DAILY Referrals: Kandice Goodrich MD [Physician] - Boy Pacheco MD [Family Provider] - See Instructions UNKNOWN, [Primary Care Provider] - See Instructions - Discharge Instructions Patient Printed Instructions: How to Use a Sling (DC), Splint Care (DC), R.I.C.E. Treatment (ED), ORIF (DC), Non Weight Bearing Activity (DC), General Anesthesia (DC) Additional Instructions: Please resume your regular diet Non weight bearing to left upper extremity in splint Please keep your splint and dressing should remain clean and dry and intact until your follow up appointment. No drinking alcohol or driving a motor vehicle today, or until you have been cleared by your doctor - Post Discharge Care Plan Care Plan Goals: Your Health Problems: Goals to Promote Your Health: * To prevent worsening of your condition * To maintain your health at the optimal level Directions to Meet Your Goals: * Take your medications as prescribed * Follow your dietary instruction * Follow activity as directed * Keep your appointments as scheduled * Take your immunizations and boosters as scheduled * If your symptoms worsen call your PCP * If no PCP go to Urgent Care or Emergency Room Smoking is dangerous to your health. Avoid second hand smoke. You may reach the 24-hour crisis hotline for domestic abuse at .
--- NOTE | 2018-09-02 14:24 | P.CON ---
History of Present Illness Service: Hospitalist Consult date: 09/02/18 Reason for Consult: Medical management. Primary Care Provider: UNKNOWN Chief Complaint: Wrist pain History of Present Illness: Ms. Graves is a pleasant 83-year-old female with a history of hypertension who sustained a closed displaced left extra-articular distal radius fracture after a mechanical fall. Patient underwent ORIF by orthopedic surgery. Hospitalist service was consulted for medical management including hypertension. At the time of this interview, patient is currently doing well. Denies any chest pain, shortness of breath, fever or chills. She reports that she has been on clonidine for blood pressure control for a long time. Also she was started on atenolol for blood pressure control recently. No changes in bowel or bladder habits. She is being discharged home today. Past medical history: Hypertension, hyperlipidemia Past surgical history: Hip surgery, appendectomy, tonsillectomy Social history: Denies smoking or using illicit drugs. She drinks alcohol occasionally. Family history: No family history of Alzheimer's or Parkinson's. Review of Systems All other systems reviewed negative except as stated in HPI PMFSH - History History Provided By: Patient - Medical History Medical History: Medical History (Last Reviewed 09/01/18 @ 12:23 by Nata Rivas) Fracture of right hip requiring operative repair Hypertension - Surgical History Surgical History: Surgical History (Last Reviewed 09/01/18 @ 12:23 by Nata Rivas) History of appendectomy History of tonsillectomy - Tobacco History Second Hand Smoke Exposure: No Smoking Status: Never smoker Tobacco Type: Cigarettes - Alcohol History How Often Do You Have a Drink Containing Alcohol: Never - Substance Use History Substance History: No History of Abuse - Travel History Recent Travel in the [place] Within the Last 8 Weeks: No Recent Travel Out of the Country Within the Last 8 Weeks: No Medications and Allergies Active Medications: Active Medications Hydrocodone Bitart/Acetaminophen ([place] 5/325) 1 tab PO Q3H PRN PRN Reason: Pain Scale 3 to 10 Last Admin: 09/02/18 10:33 Dose: 1 tab Atenolol (Tenormin) 25 mg PO DAILY DOROTHY Last Admin: 09/02/18 10:26 Dose: 25 mg Chlorhexidine Gluconate (Hibiclens 4% Topical) 1 applicatio TOPICAL ONCE DOROTHY Stop: 09/05/18 12:59 Clonidine HCl (Catapres) 0.1 mg PO TID [facility] Last Admin: 09/02/18 10:24 Dose: 0.1 mg Sodium Chloride (Ns Inj) 500 mls @ 30 mls/hr IV.SIG .Q10H [facility] Last Admin: 09/01/18 22:23 Dose: Not Given Miscellaneous Information ([facility] [place], [place] Nursing Information) 1 each OTHER UNSCH PRN PRN Reason: SEE LABEL COMMENTS Stop: 09/02/18 16:32 Morphine Sulfate (Morphine Inj) 2 mg IV.PUSH Q4H PRN PRN Reason: BREAKTHROUGH PAIN Ondansetron HCl (Zofran Inj) 4 mg IV.PUSH Q6H PRN PRN Reason: NAUSEA Last Admin: 09/01/18 22:42 Dose: 4 mg Pravastatin Sodium (Pravachol) 80 mg PO DAILY [facility] Last Admin: 09/02/18 10:24 Dose: 80 mg Allergies Allergy/AdvReac Type Severity Reaction Status Date / Time No Known Allergies Allergy Unknown Uncoded 09/15/17 15:00 Home Medications Medication Instructions Recorded Confirmed Type atenolol 25 mg PO DAILY 08/24/18 09/01/18 History clonidine HCl 0.1 mg PO TID 08/24/18 09/01/18 History lovastatin 40 mg PO DAILY 09/01/18 09/01/18 History Physical Exam Vital signs: Vital Signs 09/01/18 15:43 09/01/18 15:45 09/01/18 15:51 Temperature 97.5 F L Pulse Rate 61 61 64 Respiratory Rate 22 20 14 Blood Pressure 198/93 H 240/104 H 218/95 H Pulse Oximetry 100 100 100 09/01/18 16:00 09/01/18 16:15 09/01/18 16:30 Temperature Pulse Rate 73 76 76 Respiratory Rate 15 15 23 Blood Pressure 203/86 H 209/86 H 189/81 H Pulse Oximetry 100 100 100 09/01/18 16:45 09/01/18 17:00 09/01/18 17:15 Temperature Pulse Rate 77 75 76 Respiratory Rate 19 19 14 Blood Pressure 184/81 H 181/78 H 189/81 H Pulse Oximetry 99 100 98 09/01/18 17:30 09/01/18 17:45 09/01/18 18:00 Temperature 98.1 F Pulse Rate 69 67 71 Respiratory Rate 14 14 14 Blood Pressure 176/75 H 150/70 H 143/70 H Pulse Oximetry 100 99 94 L 09/01/18 20:00 09/02/18 00:00 09/02/18 02:39 Temperature 96.0 F L 97.7 F Pulse Rate 81 84 78 Respiratory Rate 22 20 Blood Pressure 176/83 H 196/83 H 176/78 H Pulse Oximetry 90 L 93 L 09/02/18 04:00 09/02/18 06:16 09/02/18 08:00 Temperature 98.2 F 98.3 F Pulse Rate 75 71 69 Respiratory Rate 20 20 Blood Pressure 184/81 H 152/68 H 176/74 H Pulse Oximetry 95 94 L Intake & Output 09/01/18 09/02/18 09/02/18 18:59 06:59 18:59 Intake Total 1080 / 1080 480 / 480 Output Total Balance 1065 / 1065 480 / 480 Weight 61.7 kg 62 kg Intake: IV 50 / 50 Ancef 2 GM Premix Inj 2 gm In 50 / 50 50 ml @ 100 mls/hr IV.SIG ONCE ONE Rx#:[id number] Oral 480 / 480 Anesthesia Amount 1000 / 1000 Output: Urine 0 / 0 Estimated Blood Loss Other: # Voids 2 Date of Last Bowel Movement 09/01/18 09/01/18 Weight On Admission 61.7 kg Narrative: GENERAL: This is a well-nourished, well-developed patient, in no apparent distress. SKIN: No rashes, ecchymoses or lesions. Warm and dry. HEAD: Atraumatic. Normocephalic. No temporal or scalp tenderness. EYES: Pupils equal round and reactive. No injection or drainage. ENT: Nose without bleeding, purulent drainage or septal hematoma. Airway patent. NECK: Trachea midline. No lymphadenopathy. Supple, nontender, no meningeal signs. CARDIOVASCULAR: Regular rate and rhythm without murmurs, gallops, or rubs. No JVD. RESPIRATORY: Clear to auscultation. Breath sounds equal bilaterally. No wheezes , rales, or rhonchi. GASTROINTESTINAL: Abdomen soft, non-tender, nondistended. No guarding. MUSCULOSKELETAL: Extremities without clubbing, cyanosis, or edema. Status post left wrist ORIF. NEUROLOGICAL: Awake and alert. Cranial nerves II through XII intact. No focal neurological deficits. Normal speech. Assessment and Plan - Plan Ms. Graves is a pleasant 83-year-old female with a history of hypertension who underwent ORIF of left wrist due to a mechanical fall and sustained left wrist fracture. Patient has a history of hypertension and takes atenolol and clonidine. Hospital service was consulted for medical management. Left wrist fracture -status post ORIF. Patient is going home today. Hypertension Patient takes Atenolol and Clonidine for BP. I have encouraged her to discuss with her PCP to see if they can discontinue both of these two BP meds and start her on CCB (Amlodipine, Nifedipine) and/or JC inhibitor or ARB. While her blood pressure is somewhat high in the hospital, it likely happened because she did not have her medications. It would be difficult to adjust her blood pressure medications in the hospital without proper follow-up. It would be ideal for her to discuss with her primary care physician who can wean her off atenolol and clonidine and start her on calcium channel jose martin and/or JC inhibitor or ARB. Patient verbalized understanding. Thank you for the consult. Patient is being discharged home today.
== END 2018-09-02 15:42 | disposition home or self-care (01) ==
LOC: N06 11:26 → HOR 11:26
PROVIDERS: ADMIT Orthopaedic Surgery Orthopaedic Surgery of the Spine; ATTEND Orthopaedic Surgery Orthopaedic Surgery of the Spine